=== PATIENT | female | born 1990 | race African-American/Black ===

== ENCOUNTER 2024-08-28 21:24 | Emergency (ER) | payer MEDICARE ==
[~2024-08-28] VITALS: Ht 154.9 cm; Wt 54.4 kg
[2024-08-28] MEDS: Morphine 4mg INJECTION 4 MG/ML INJ IV ONE (22:41)
[2024-08-29] MEDS: ACETAMINOPHEN 325 MG TAB PO ONE (00:51)
[2024-08-29] MEDS: CYCLOBENZAPRINE HCL 10 MG TAB PO ONE (00:52)
[2024-08-29] MEDS: NAPROXEN 250 MG TAB PO STA (01:21)
[2024-08-29 01:35] VITALS: PULSE 69; RESP 16; TEMP 98.2
[2024-08-29] MEDS ORDERED: METHOCARBAMOL750 MG PO (02:05)
[2024-08-29 02:07] VITALS: BP 112/72; PULSE 69; RESP 16; TEMP 98.2; O2SAT 99
== END 2024-08-29 02:11 | disposition home or self-care (01) ==
LOC: FSED 21:27
DX: R06.02 Shortness of breath (principal); R07.89 Other chest pain; R00.2 Palpitations; I10 Essential (primary) hypertension; Z11.52 Encounter for screening for COVID-19; Z86.718 Personal history of other venous thrombosis and embolism
CPT/HCPCS: 0223U; 71260; 80048; 81003; 81025; 82553; 83518; 83880; 84484; 85025; 85379; 87400; 93005; 99284; J2270